=== PATIENT | male | born 1945 | race Caucasian/White ===

== ENCOUNTER 2016-09-12 12:50 | Observation (INO) | payer OTHER, MEDICAID ==
[~2016-09-12] VITALS: Ht 188 cm; Wt 95.3 kg
[~2016-09-12 12:50] MED LIST: ASPI325T4 PO; LEVO125T6 PO; LORA-205 PO; MET50T PO; NAPR220C PO; RAMI2.5C33 PO
[2016-09-12] MEDS ORDERED: SODIUM CHLORIDE 0.9% 1,000 ML IV ONE (13:48)
[2016-09-12] MEDS ORDERED: LORazepam 2MG/ML-1ML VIAL IV ONE (14:00)
[2016-09-12 14:34] LABS: Basophils # (auto) 0 uL; Basophils % (auto) 0.2 % (0.0-2.0); CONDITION Y; Eosinophils # (auto) 0.2 uL; Eosinophils % (auto) 2.6 % (0.0-7.0); Hematocrit 38.9 % (41.0-53.0); Hemoglobin 13.4 g/dL (13.5-17.5); Lymphocytes # (auto) 1.6 uL; Lymphocytes % (auto) 18.7 % (10.0-50.0); Mean Corpuscular Hemoglobin 31.5 pg (28.0-32.0); Mean Corpuscular Hgb Conc. 34.4 g/dL (32.0-36.0); Mean Corpuscular Volume 91.8 fL (80.0-100.0); Mean Platelet Volume 8.9 fL (7.4-10.4); Monocytes # (auto) 0.9 uL; Monocytes % (auto) 10.5 % (0.0-12.0); Neutrophils # (auto) 5.6 uL; Platelet Count (auto) 224 10^3/uL (140-450); Red Cell Distribution Width 13.6 % (11.6-16.0); White Blood Cell 8.3 10^3/uL (4.4-10.8)
[2016-09-12 15:22] LABS: B-Type Natriuretic Peptide 179.28 pg/mL (0-100)
[2016-09-12 15:23] LABS: Alkaline Phosphatase 72 U/L (45-117); Anion Gap 7 (5-15); Aspartate Aminotransferase 18 U/L (15-37); BUN/Creatinine Ratio 10.9; Bilirubin, Total 0.4 mg/dL (0.2-1.0); Blood Urea Nitrogen 12 mg/dL (7-18); Calcium 9.3 mg/dL (8.5-10.1); Carbon Dioxide 23 mmol/L (21-32); Chloride 108 mmol/L (98-107); GFR African American 85 mL/min; GFR Non-African American 71 mL/min; Glucose 94 mg/dL (74-106); Magnesium 2.6 mg/dL (1.6-2.6); Potassium 3.9 mmol/L (3.5-5.1); Sodium 138 mmol/L (136-145); Total Protein 7.3 g/dL (6.4-8.2)
[2016-09-12 15:26] LABS: Temperature: 24.6 C (20.0-25.0)
[2016-09-12 15:39] LABS: INR 0.97 (0.9-1.15); Partial Thromboplastin Time 27.7 sec (22.64-33.71); Prothrombin Time 10.6 sec (9.37-12.3)
[2016-09-12] MEDS ORDERED: cloNIDine HCL 0.1 MG TAB PO ONE (22:15)
[2016-09-12 22:20] VITALS: BP 167/101
== END 2016-09-12 23:09 | disposition short-term general hospital (02) | DRG 312 ==
LOC: EDBD 12:50 → ER 12:55 → OVERFLOW 13:50 → ER 23:09
PROVIDERS: ADMIT Family Medicine; ATTEND Family Medicine
DX: R55 Syncope and collapse (principal); I67.1 Cerebral aneurysm, nonruptured; D71 Functional disorders of polymorphonuclear neutrophils; I11.0 Hypertensive heart disease with heart failure; I50.9 Heart failure, unspecified; I70.0 Atherosclerosis of aorta; F41.9 Anxiety disorder, unspecified; E03.9 Hypothyroidism, unspecified; I25.5 Ischemic cardiomyopathy; I25.2 Old myocardial infarction; Z95.5 Presence of coronary angioplasty implant and graft; Z95.0 Presence of cardiac pacemaker
CPT/HCPCS: 36415; 70450; 71020; 80053; 83735; 83880; 84443; 84484; 85025; 85379; 85610; 85730; 93005; 96361; 96374; 99291; G0378; J2060

== ENCOUNTER 2017-05-29 15:38 | Emergency (ER) | payer OTHER, MEDICAID ==
[~2017-05-29] VITALS: Ht 188 cm; Wt 88.5 kg
[~2017-05-29 15:38] MED LIST changes: -LEVO125T6 PO; +LEVO125T7 PO
[2017-05-29] MEDS ORDERED: SODIUM CHLORIDE 0.9% 500 ML IV ONE (16:22)
[2017-05-29 16:27] LABS: Basophils # (auto) 0 uL; Basophils % (auto) 0.4 % (0.0-2.0); Eosinophils # (auto) 0.2 uL; Eosinophils % (auto) 3.3 % (0.0-7.0); Hematocrit 37.9 % (41.0-53.0); Hemoglobin 12.8 g/dL (13.5-17.5); Lymphocytes # (auto) 1.5 uL; Lymphocytes % (auto) 21.3 % (10.0-50.0); Mean Corpuscular Hemoglobin 31.3 pg (28.0-32.0); Mean Corpuscular Hgb Conc. 33.8 g/dL (32.0-36.0); Mean Corpuscular Volume 92.4 fL (80.0-100.0); Monocytes # (auto) 0.8 uL; Monocytes % (auto) 10.9 % (0.0-12.0); Neutrophils # (auto) 4.4 uL; Neutrophils % (auto) 64.1 % (37.0-80.0); Platelet Count (auto) 196 10^3/uL (140-450); Red Cell Distribution Width 13.5 % (11.8-14.3); White Blood Cell 6.9 10^3/uL (4.4-10.8)
[2017-05-29 16:40] LABS: Alanine Aminotransferase 24 U/L (16-61); Albumin 3.9 g/dL (3.4-5.0); Anion Gap 8 (5-15); Aspartate Aminotransferase 19 U/L (15-37); BUN/Creatinine Ratio 9.4; Blood Urea Nitrogen 12 mg/dL (7-18); Calcium 8.9 mg/dL (8.5-10.1); Carbon Dioxide 23 mmol/L (21-32); Chloride 109 mmol/L (98-107); GFR African American 72 mL/min; GFR Non-African American 60 mL/min; Glucose 88 mg/dL (74-106); Magnesium 2.2 mg/dL (1.6-2.6); Sodium 140 mmol/L (136-145)
[2017-05-29 16:45] LABS: Alkaline Phosphatase 78 U/L (45-117); Bilirubin, Total 0.4 mg/dL (0.2-1.0); Total Protein 7.1 g/dL (6.4-8.2)
[2017-05-29 18:05] VITALS: BP 118/76
== END 2017-05-29 18:16 | disposition home or self-care (01) ==
LOC: ER 15:40
DX: R53.1 Weakness (principal); I11.0 Hypertensive heart disease with heart failure; I50.9 Heart failure, unspecified; E11.9 Type 2 diabetes mellitus without complications; E78.5 Hyperlipidemia, unspecified; Z79.82 Long term (current) use of aspirin; Z86.73 Personal history of transient ischemic attack (TIA), and cerebral infarction without residual deficits; Z88.6 Allergy status to analgesic agent; Z95.0 Presence of cardiac pacemaker
CPT/HCPCS: 36415; 71046; 80053; 83735; 84484; 85025; 93005; 94761; 96360

== ENCOUNTER 2017-11-21 16:08 | Observation (INO) | payer OTHER, MEDICAID ==
[~2017-11-21] VITALS: Ht 188 cm; Wt 90.7 kg
[2017-11-21 17:35] LABS: Basophils # (auto) 0 uL; Basophils % (auto) 0.6 % (0.0-2.0); Eosinophils # (auto) 0.2 uL; Eosinophils % (auto) 3.5 % (0.0-7.0); Hematocrit 39.7 % (41.0-53.0); Hemoglobin 13.4 g/dL (13.5-17.5); Lymphocytes # (auto) 1.5 uL; Lymphocytes % (auto) 22.2 % (10.0-50.0); Mean Corpuscular Hemoglobin 31.3 pg (28.0-32.0); Mean Corpuscular Hgb Conc. 33.8 g/dL (32.0-36.0); Mean Corpuscular Volume 92.6 fL (80.0-100.0); Monocytes # (auto) 0.7 uL; Monocytes % (auto) 10.4 % (0.0-12.0); Neutrophils # (auto) 4.4 uL; Neutrophils % (auto) 63.3 % (37.0-80.0); Platelet Count (auto) 197 10^3/uL (140-450); Red Blood Cells 4.28 10^6/uL (4.5-5.90); Red Cell Distribution Width 13.3 % (11.8-14.3); White Blood Cell 6.9 10^3/uL (4.4-10.8)
[2017-11-21 17:56] LABS: Alanine Aminotransferase 20 U/L (16-61); Albumin 4.1 g/dL (3.4-5.0); Alkaline Phosphatase 72 U/L (45-117); Anion Gap 6 (5-15); Aspartate Aminotransferase 15 U/L (15-37); BUN/Creatinine Ratio 13.6; Bilirubin, Total 0.4 mg/dL (0.2-1.0); Blood Urea Nitrogen 16 mg/dL (7-18); Calcium 9.1 mg/dL (8.5-10.1); Carbon Dioxide 24 mmol/L (21-32); Chloride 108 mmol/L (98-107); GFR African American 78 mL/min; GFR Non-African American 65 mL/min; Glucose 89 mg/dL (74-106); Sodium 138 mmol/L (136-145); Total Protein 7.4 g/dL (6.4-8.2)
[2017-11-21 18:20] VITALS: BP 119/68
[2017-11-21 18:33] LABS: INR 0.98 (0.9-1.15); Partial Thromboplastin Time 28.8 sec (23.78-33.04); Prothrombin Time 10.5 sec (9.27-12.13)
[2017-11-21 21:03] LABS: Urine WBC None Seen /hpf (0 - 3)
[2017-11-21 21:25] LABS: Urine Bacteria NONE SEEN /hpf (None Seen); Urine Blood Negative /uL (Negative); Urine Mucus FEW (None Seen); Urine Specific Gravity 1.003 (1.001-1.035)
== END 2017-11-21 20:21 | disposition left against medical advice (07) | DRG 282 ==
LOC: ER 16:14 → OVERFLOW 16:15 → ER 20:21
PROVIDERS: ADMIT Family Medicine; ATTEND Family Medicine
DX: R07.89 Other chest pain (principal); I21.9 Acute myocardial infarction, unspecified; I11.0 Hypertensive heart disease with heart failure; I50.9 Heart failure, unspecified; I25.10 Atherosclerotic heart disease of native coronary artery without angina pectoris; F41.9 Anxiety disorder, unspecified; E78.5 Hyperlipidemia, unspecified; Z95.0 Presence of cardiac pacemaker
CPT/HCPCS: 36415; 71046; 80053; 81001; 82962; 83735; 83880; 84443; 84484; 85025; 85610; 85730; 93005; 99285; G0378

== ENCOUNTER 2019-02-27 14:17 | Inpatient (IN) | payer OTHER, MEDICAID ==
[~2019-02-27] VITALS: Ht 188 cm; Wt 87.5 kg
[2019-02-27 15:06] LABS: Basophils # (auto) 0.1 uL; Basophils % (auto) 0.8 % (0.0-2.0); Eosinophils # (auto) 0.1 uL; Eosinophils % (auto) 1.6 % (0.0-7.0); Hematocrit 39.5 % (41.0-53.0); Hemoglobin 13.5 g/dL (13.5-17.5); Lymphocytes # (auto) 1.6 uL; Lymphocytes % (auto) 17.4 % (10.0-50.0); Mean Corpuscular Hemoglobin 31.9 pg (28.0-32.0); Mean Corpuscular Hgb Conc. 34.2 g/dL (32.0-36.0); Mean Corpuscular Volume 93.1 fL (80.0-100.0); Monocytes # (auto) 0.8 uL; Monocytes % (auto) 8.8 % (0.0-12.0); Neutrophils # (auto) 6.5 uL; Neutrophils % (auto) 71.4 % (37.0-80.0); Platelet Count (auto) 212 10^3/uL (140-450); Red Blood Cells 4.24 10^6/uL (4.5-5.90); Red Cell Distribution Width 13.2 % (11.8-14.3); White Blood Cell 9.1 10^3/uL (4.4-10.8)
[2019-02-27 15:23] LABS: Calcium 9.1 mg/dL (8.5-10.1); Potassium 3.7 mmol/L (3.5-5.1)
[2019-02-27 15:29] LABS: Bilirubin, Total 0.4 mg/dL (0.2-1.0); Total Protein 7.4 g/dL (6.4-8.2)
[2019-02-27] MEDS ORDERED: ONDANSETRON HCL 4 MG/2 ML VIAL IV ONE (21:45)
[2019-02-27] MEDS ORDERED: MORPHINE SULF INJ 2 MG/ML SYRINGE 1ML IV ONE (21:45)
[2019-02-27] MEDS ORDERED: ASPirin 81 mg TAB PO ONE (21:45)
[2019-02-27] MEDS ORDERED: NITROGLYCERIN 0.2MG/HR TOPICAL PATCH TD ONE (22:00)
[2019-02-27] MEDS ORDERED: ONDANSETRON HCL 4 MG/2 ML VIAL IV PRN (22:30)
[2019-02-27] MEDS ORDERED: ACETAMINOPHEN 325 MG TAB PO PRN (22:30)
[2019-02-27 22:49] LABS: INR 1.06 (0.9-1.15); Partial Thromboplastin Time 27.9 sec (23.64-32.05)
[2019-02-27 23:11] LABS: Urine Bacteria NONE SEEN /hpf (None Seen); Urine Blood Negative /uL (Negative); Urine Specific Gravity 1.008 (1.001-1.035); Urine WBC 1 /hpf (0 - 3)
[2019-02-27] MEDS ORDERED: MORPHINE SULF INJ 2 MG/ML SYRINGE 1ML IV PRN (23:30)
[2019-02-27] MEDS ORDERED: METOPROLOL TARTRATE 25 MG TAB PO ONE (23:30)
[2019-02-27] MEDS ORDERED: ENOXAPARIN SOD 80 MG/0.8ML SYRINGE SC ONE (23:30)
[2019-02-27] MEDS ORDERED: NITROGLYCERIN 0.4 MG SL TAB SL PRN (23:30)
--- NOTE | 2019-02-28 00:50 | NUR ---
Telemetry admit from ER YOANDY GUERRERO admitted to Telemetry unit. Patient oriented to juan pablo SOL RN, unit, room, bed, and unit policies regarding patient care and visiting hours. Patient now on continuous telemetry monitoring, tele box # 76 and telemetry reading on arrival to unit is 100% v-paced . Patient weighed by bed scale and encouraged to call if they need something. All questions and concerns addressed, patient verbalized understanding.
[2019-02-28 00:56] VITALS: BP 143/91
[2019-02-28] MEDS: LORazepam 0.5 MG TAB PO PRN ×2 (01:37→21:10)
--- NOTE | 2019-02-28 02:22 | NUR ---
CRITICAL TROPONIN RESULT FROM ZAINAB CARD PUNCHING MACHINE OPERATOR, TROPONIN 7.980. HOSPITALIST PAGED.
--- NOTE | 2019-02-28 02:29 | NUR ---
ASKED PATIENT WHY RE REFUSED ENOXAPARIN ORDERED IN ED. PATIENT SAID,"IT IS BECAUSE OF MY ANEURYSM". HOSPITALIST PAGED.
[2019-02-28 02:45] VITALS: BP 143/91
[2019-02-28] MEDS ORDERED: ENOXAPARIN SOD 100 MG/1 ML SYRINGE SC ONE (02:45)
--- NOTE | 2019-02-28 02:45 | NUR ---
PATIENT AGREED TO TAKE LOVENOX. HOSPITALIST NOTIFIED. Addendum: 02/28/19 at 0248 by SALOMÓN PALOMINO RN HOSPITALIST NOTIFIED OF LATEST TROPONIN 7.980
--- NOTE | 2019-02-28 03:16 | NUR ---
ENOXAPARIN 90MG GIVEN SQ ORDERED, PATIENT INFORMED OF MEDICATION SIDE EFFECTS SUCH BLEEDING AND BRUISING ON INJECTION SITE, PATIENT VERBALIZED UNDERSTANDING .
[2019-02-28 06:12] VITALS: BP 113/60
[2019-02-28] MEDS: LEVOTHYROXINE SODIUM 50 MCG TAB PO SCH (06:23)
[2019-02-28 07:46] LABS: Basophils # (auto) 0 uL; Basophils % (auto) 0.2 % (0.0-2.0); Eosinophils # (auto) 0.1 uL; Eosinophils % (auto) 0.7 % (0.0-7.0); Hematocrit 35.9 % (41.0-53.0); Hemoglobin 12.7 g/dL (13.5-17.5); Lymphocytes # (auto) 1.3 uL; Lymphocytes % (auto) 13.9 % (10.0-50.0); Mean Corpuscular Hemoglobin 32.5 pg (28.0-32.0); Mean Corpuscular Hgb Conc. 35.3 g/dL (32.0-36.0); Mean Corpuscular Volume 92.1 fL (80.0-100.0); Monocytes # (auto) 0.9 uL; Monocytes % (auto) 10.2 % (0.0-12.0); Neutrophils # (auto) 6.9 uL; Nucleated Red Blood Cells % 0.1 %; Platelet Count (auto) 200 10^3/uL (140-450); Red Blood Cells 3.89 10^6/uL (4.5-5.90); Red Cell Distribution Width 13.1 % (11.8-14.3); White Blood Cell 9.3 10^3/uL (4.4-10.8)
--- NOTE | 2019-02-28 07:50 | NUR ---
Opening Shift Note Assumed care of patient, awake and alert, sitting up in bed uncomplaining. No S/S of distress/SOB or pain. Instructed on POC and to call for assist PRN, will continue to monitor for changes Q1hr and PRN. NPO status maintained for Left Heart Cath today.
[2019-02-28 07:55] LABS: Calcium 9.1 mg/dL (8.5-10.1); Potassium 4.5 mmol/L (3.5-5.1)
--- NOTE | 2019-02-28 08:15 | NUR ---
Consent Patient signed consent for left heart cath.
--- NOTE | 2019-02-28 08:25 | NUR ---
Counterperson Patient at Counterperson.
[2019-02-28 09:00] VITALS: BP 126/80
[2019-02-28 09:11] LABS: INR 1.12 (0.9-1.15); Partial Thromboplastin Time 33.3 sec (23.64-32.05)
[2019-02-28] MEDS ORDERED: ANGIOMAX 250 MG VIAL IV ONE (09:29)
[2019-02-28] MEDS ORDERED: MIDAZOLAM HCL 1MG/1ML-2 ML VIAL ONE ×2 (09:30→10:59)
[2019-02-28] MEDS ORDERED: fentaNYL CITRATE 100 MCG/2 ML VL ONE (09:30)
[2019-02-28] MEDS ORDERED: SODIUM CHL 0.9% 50 ML ONE (09:30)
[2019-02-28] MEDS ORDERED: VERAPAMIL 2.5MG/ML INJ 2ML VIAL IV ONE (09:30)
[2019-02-28] MEDS ORDERED: LIDOCAINE 2%HCL (LOCAL ANESTH.) INJ 20ML MDV ONE (09:35)
[2019-02-28] MEDS ORDERED: IOHEXOL 350 MG/ML 100ML IJ ONE ×6 (09:35→10:49)
--- NOTE | 2019-02-28 09:45 | NUR ---
Critical Troponin Troponin 6.940. Patient already in Rub[facility] [employer].
[2019-02-28] MEDS ORDERED: HEPARIN SODIUM (PORCINE) 5000 UNITS/ML 1ML VIAL ONE (09:56)
[2019-02-28] MEDS ORDERED: ASPirin 81 mg TAB PO SCH (10:00)
[2019-02-28] MEDS ORDERED: ENOXAPARIN SOD 40 MG/0.4 ML SYRINGE SC SCH (10:00)
[2019-02-28] MEDS ORDERED: ENOXAPARIN SOD 80 MG/0.8ML SYRINGE SC SCH (10:00)
[2019-02-28] MEDS ORDERED: ASPirin 325 MG TAB ONE (10:54)
[2019-02-28] MEDS ORDERED: CLOPIDOGREL 300 MG TAB ONE (10:54)
[2019-02-28] MEDS ORDERED: SODIUM CHLORIDE 0.9% 1,000 ML IV ONE (12:00)
--- NOTE | 2019-02-28 12:30 | NUR ---
On Unit Patient brought back to unit from greens laborer. Patient awake but drowsy, alert and oriented. No complaints at this time. Call light placed within reach and patient encouraged to call if he needed something. Bed alarm on for safety.
--- NOTE | 2019-02-28 12:30 | NUR ---
Vasc Band 2 units of air removed from vasc band.
--- NOTE | 2019-02-28 12:45 | NUR ---
Vasc Band Another 2 units of air removed from vasc band to right hand. no bleeding noted, and patient has sensation to fingers.
[2019-02-28] MEDS: FAMOTIDINE 20 MG TAB PO SCH ×2 (13:14→21:10)
[2019-02-28] MEDS: METOPROLOL TARTRATE 25 MG TAB PO SCH ×2 (13:18→21:10)
[2019-02-28] MEDS: RAMIPRIL 2.5 MG CAP PO SCH (13:18)
[2019-02-28] MEDS ORDERED: OPTISON 3ml Vial for INJ IV ONE (14:30)
--- NOTE | 2019-02-28 14:44 | NUR ---
COVERING FOR RAFA KING GIVE IV ORDERED FOR ECHOCARDIOGRAM. Addendum: 02/28/19 at 1449 by Paula Armando RN OPTISON 2ML GIVEN IV.
--- NOTE | 2019-02-28 15:00 | NUR ---
Vasc Band All air from vasc band removed, however bleeding noted, so 4cc of air reintroduced to vasc band. Will continue to monitor patient for sensation and bleeding.
--- NOTE | 2019-02-28 16:25 | NUR ---
IV Dislodged IV noted to be dislodged as patient ambulated in room without IV pole. Catheter fully intact. Pressure dressing applied to site. IV insertion IV access obtained, via clean sterile technique by inserting 20 gauge catheter at left wrist after 1 attempt. IV secured properly. No trauma to site. Patient tolerated well.
--- NOTE | 2019-02-28 16:30 | NUR ---
Vasc Band 1cc air removed from vasc band . No bleeding noted.
--- NOTE | 2019-02-28 16:45 | NUR ---
Vasc Band Final 1cc of air removed from vasc band . No bleeding noted. Will continue to monitor.
[2019-02-28 16:58] VITALS: BP 107/76
--- NOTE | 2019-02-28 17:00 | NUR ---
Vasc Band Band removed from patient's right wrist. No bleeding noted. Dressed with gauzed and covered with Tegaderm.
[2019-02-28] MEDS: SODIUM CHLORIDE 0.9% 1,000 ML IV SCH (17:01)
--- NOTE | 2019-02-28 17:15 | NUR ---
Vasc Band 1cc air removed from vasc band . No bleeding noted. Addendum: 02/28/19 at 1805 by MALINI BEARD RN Time is 1615
--- NOTE | 2019-02-28 17:30 | NUR ---
Vasc Band 1cc air removed from vasc band . No bleeding noted. Addendum: 02/28/19 at 1804 by MALINI BEARD RN Time is 1600.
--- NOTE | 2019-02-28 17:40 | NUR ---
Physical Therapy Patient ambulated on unit with Physical Therapist.
[2019-02-28 21:51] VITALS: BP 115/76
[2019-02-28] MEDS ORDERED: ATORVASTATIN 20 MG TAB PO SCH (22:00)
[2019-03-01] MEDS ORDERED: SODIUM CHLORIDE 0.9% 1,000 ML IV SCH ×2 (00:01)
[2019-03-01 04:54] VITALS: BP 107/64
[2019-03-01] MEDS: SODIUM CHLORIDE 0.9% 1,000 ML IV SCH (05:18)
[2019-03-01] MEDS: LEVOTHYROXINE SODIUM 50 MCG TAB PO SCH (05:37)
[2019-03-01 06:32] LABS: Basophils # (auto) 0 uL; Basophils % (auto) 0.3 % (0.0-2.0); Eosinophils # (auto) 0 uL; Eosinophils % (auto) 0.5 % (0.0-7.0); Hematocrit 34.4 % (41.0-53.0); Hemoglobin 12.1 g/dL (13.5-17.5); Lymphocytes # (auto) 1.2 uL; Lymphocytes % (auto) 15.6 % (10.0-50.0); Mean Corpuscular Hemoglobin 32.6 pg (28.0-32.0); Mean Corpuscular Hgb Conc. 35.2 g/dL (32.0-36.0); Mean Corpuscular Volume 92.5 fL (80.0-100.0); Monocytes # (auto) 0.7 uL; Monocytes % (auto) 9.6 % (0.0-12.0); Neutrophils # (auto) 5.7 uL; Nucleated Red Blood Cells % 0.1 %; Platelet Count (auto) 167 10^3/uL (140-450); Red Blood Cells 3.72 10^6/uL (4.5-5.90); Red Cell Distribution Width 13.2 % (11.8-14.3); White Blood Cell 7.7 10^3/uL (4.4-10.8)
[2019-03-01 06:40] LABS: Potassium 3.7 mmol/L (3.5-5.1)
--- NOTE | 2019-03-01 06:41 | NUR ---
End of Shift Summary: Patient had no episodes of chest pain. Ambulates without difficulty. Has episodes of forgetfulness.
[2019-03-01 07:08] LABS: BUN/Creatinine Ratio 9.9; Magnesium 2.1 mg/dL (1.6-2.6)
--- NOTE | 2019-03-01 07:30 | NUR ---
Morning note Patient resting in bed with even and unlabored respirations, no distress noted. Instructed patient on POC, fall precautions and to call for assistance as needed. Patient verbalized understanding. Fall precautions in place with bed in lowest locked position with x2 side rails up and call light within reach. Will continue to monitor q1hr & PRN.
--- NOTE | 2019-03-01 07:52 | NUR ---
RE: Critical troponin Message left with Dr. Sifuentes notifying MD of the critical troponin. Patient denies CP. Will continue to monitor q1hr & PRN.
--- NOTE | 2019-03-01 08:30 | NUR ---
Patient ambulating with steady gait respirations even and unlabored, no distress noted.
[2019-03-01 09:00] VITALS: BP 105/71
[2019-03-01] MEDS: FAMOTIDINE 20 MG TAB PO SCH (09:42)
[2019-03-01] MEDS: METOPROLOL TARTRATE 25 MG TAB PO SCH (09:42)
[2019-03-01] MEDS: RAMIPRIL 2.5 MG CAP PO SCH (09:43)
[2019-03-01] MEDS ORDERED: ASPirin 81 mg TAB PO SCH (10:00)
[2019-03-01] MEDS ORDERED: CLOPIDOGREL BISULFATE 75 MG TAB PO SCH (10:00)
--- NOTE | 2019-03-01 10:20 | NUR ---
RE: critical troponin Received critical troponin. Level is trending down. aware. Verbally notified Kalen Haq, N.P.. Severino verbalized understanding. Patient denies CP and/or SOB.
--- NOTE | 2019-03-01 10:25 | NUR ---
Patient okay for discharge per Gabriel Delgadillo.P..
--- NOTE | 2019-03-01 10:48 | NUR ---
was at bedside - Dr. Shaikh TOLENTINO discussed with the patient. Patient verbalized understanding. This RN was at bedside.
[2019-03-01] MEDS ORDERED: PANT40TA2 PO (12:11)
[2019-03-01] MEDS ORDERED: ASPI81CH43 PO (12:11)
[2019-03-01] MEDS ORDERED: CLOP75TA28 PO (12:11)
[2019-03-01] MEDS ORDERED: ATOR20TA50 PO (12:11)
[2019-03-01] MEDS ORDERED: SPIR25TA88 PO (12:14)
--- NOTE | 2019-03-01 13:20 | NUR ---
Discharge Discharge education and paperwork given to the patient per MD order. Patient verbalized understanding. IV removed with clean technique, catheter intact. Dressing and pressure applied. Patient tolerated well, no bleeding and/or trauma to site. Telemonitor removed and returned. Instructed patient on bleeding precautions and educated patient on new prescription. Patient verbalized understanding. Patient reports having all personal belongings. Patient being transported home by his girlfriend, who is present at bedside during discharge. Dressing to the right wrist is clean, dry and intact with no bleeding and/or hematoma noted. Respirations even and unlabored, no distress noted. Patient refused wheelchair. Patient ambulated with a steady gait to private vehicle.
--- NOTE | 2019-03-01 15:11 | NUR ---
Assessment and SS consult Pt is a 73 yr old alert and oriented male. SS consult given for d/c planning. Pt lives alone, in senior apartments. Pt's neighbor, Tiffanie, is his emergency contact at [phone]. Prior to admit and currently, pt is ambulatory and independent with ADL's. Pt has a ride on scooter for long distances. Pt stated that he was admitted with chest pains and that he had stints put in. Pt's Primary is Dr Pichardo. Pt receives income. No AD on file. Pt's neighbor was bedside and planned to transport home upon d/c. No d/c needs assessed.
== END 2019-03-01 13:15 | disposition home or self-care (01) | DRG 246 ==
LOC: EDBD 14:17 → ER 14:25 → TELE 14:26 → TELE-WESTW 02-28 00:38
PROVIDERS: ADMIT Nurse Practitioner; ATTEND Internal Medicine
PROC: 027237Z Dilation of Coronary Artery, Three Arteries with Four or More Drug-eluting Intraluminal Devices, Percutaneous Approach (ICD-10-PCS; principal; 2019-02-28)
PROC: 02C23ZZ Extirpation of Matter from Coronary Artery, Three Arteries, Percutaneous Approach (ICD-10-PCS; 2019-02-28)
PROC: 4A023N7 Measurement of Cardiac Sampling and Pressure, Left Heart, Percutaneous Approach (ICD-10-PCS; 2019-02-28)
PROC: B2111ZZ Fluoroscopy of Multiple Coronary Arteries using Low Osmolar Contrast (ICD-10-PCS; 2019-02-28)
PROC: B2151ZZ Fluoroscopy of Left Heart using Low Osmolar Contrast (ICD-10-PCS; 2019-02-28)
DX: T82.858A Stenosis of other vascular prosthetic devices, implants and grafts, initial encounter (principal); I21.4 Non-ST elevation (NSTEMI) myocardial infarction; I50.43 Acute on chronic combined systolic (congestive) and diastolic (congestive) heart failure; E78.5 Hyperlipidemia, unspecified; E03.9 Hypothyroidism, unspecified; I11.0 Hypertensive heart disease with heart failure; F41.9 Anxiety disorder, unspecified; Y84.0 Cardiac catheterization as the cause of abnormal reaction of the patient, or of later complication, without mention of misadventure at the time of the procedure; I25.10 Atherosclerotic heart disease of native coronary artery without angina pectoris; Z79.02 Long term (current) use of antithrombotics/antiplatelets; Z88.8 Allergy status to other drugs, medicaments and biological substances; Z90.49 Acquired absence of other specified parts of digestive tract; Z83.3 Family history of diabetes mellitus; Z95.0 Presence of cardiac pacemaker; Z95.5 Presence of coronary angioplasty implant and graft; Z82.49 Family history of ischemic heart disease and other diseases of the circulatory system; Y92.89 Other specified places as the place of occurrence of the external cause; Z79.899 Other long term (current) drug therapy
CPT/HCPCS: 36415; 71045; 80048; 80053; 80061; 81001; 83735; 83880; 84443; 84484; 85025; 85610; 85730; 93005; 93306; 96361; 96372; 96374; 97116; 97530; C1887; G0378; J2250; J2405; Q9956

== ENCOUNTER 2020-05-11 11:21 | Inpatient (IN) | payer OTHER, MEDICAID ==
[~2020-05-11] VITALS: Ht 188 cm; Wt 85.6 kg
[2020-05-11] VITALS (11 sets, daily range): BP systolic 125–133; BP diastolic 74–80
[~2020-05-11 11:21] MED LIST changes: -ASPI325T4 PO; +ASPI81CH43 PO; +ATOR20TA50 PO; +CLOP75TA28 PO; +PANT40TA2 PO; +SPIR25TA PO
[2020-05-11] MEDS ORDERED: AMIODARONE HCL 150 MG in D5W 5% 100 ML IV ONE (11:45)
[2020-05-11] MEDS ORDERED: AMIODARONE HCL (50 MG/ ML) 3 ML VIAL IV ONE (11:46)
[2020-05-11] MEDS ORDERED: AMIODARONE 450mg/250ml AE 250 ML IV ONE (11:48)
[2020-05-11 11:56] LABS: Basophils # (auto) 0 10 ^3/uL (0-0.2); Basophils % (auto) 0.2 % (0.0-2.0); Eosinophils # (auto) 0.1 10 ^3/uL (0-0.8); Eosinophils % (auto) 1.6 % (0.0-7.0); Hematocrit 38.7 % (41.0-53.0); Hemoglobin 13.6 g/dL (13.5-17.5); Lymphocytes # (auto) 1.2 10 ^3/uL (0.4-5.4); Mean Corpuscular Hemoglobin 32.6 pg (28.0-32.0); Mean Corpuscular Hgb Conc. 35.1 g/dL (32.0-36.0); Mean Corpuscular Volume 93.1 fL (80.0-100.0); Monocytes # (auto) 0.7 10 ^3/uL (0-1.3); Monocytes % (auto) 8.4 % (0.0-12.0); Neutrophils # (auto) 6.5 10 ^3/uL (1.6-8.6); Neutrophils % (auto) 75.8 % (37.0-80.0); Nucleated Red Blood Cells % 0.1 %; Red Blood Cells 4.16 10^6/uL (4.5-5.90); Red Cell Distribution Width 13.6 % (11.8-14.3); White Blood Cell 8.5 10^3/uL (4.4-10.8)
[2020-05-11] MEDS ORDERED: AMIODARONE 450mg/250ml AE 250 ML IV SCH (12:00)
[2020-05-11 12:19] LABS: Albumin 3.9 g/dL (3.4-5.0); Anion Gap 7 (5-15); Blood Urea Nitrogen 12 mg/dL (7-18); Calcium 9.4 mg/dL (8.5-10.1); Carbon Dioxide 26 mmol/L (21-32); Chloride 107 mmol/L (98-107); Glucose 97 mg/dL (74-106); Magnesium 2.5 mg/dL (1.6-2.6); Potassium 4.1 mmol/L (3.5-5.1); Sodium 140 mmol/L (136-145)
[2020-05-11 12:23] LABS: Alanine Aminotransferase 26 U/L (16-61); Alkaline Phosphatase 93 U/L (45-117); Aspartate Aminotransferase 22 U/L (15-37); BUN/Creatinine Ratio 11.7; Bilirubin, Total 0.5 mg/dL (0.2-1.0); GFR African American 91 mL/min; GFR Non-African American 75 mL/min; Total Protein 7.5 g/dL (6.4-8.2)
[2020-05-11] MEDS ORDERED: NITROGLYCERIN 0.4 MG SL TAB SL PRN (13:00)
[2020-05-11] MEDS ORDERED: HYDROcodone-ACET 5/325MG TAB PO PRN (13:00)
[2020-05-11] MEDS ORDERED: ONDANSETRON HCL 4 MG/2 ML VIAL IV PRN (13:00)
[2020-05-11] MEDS ORDERED: MORPHINE SULFATE INJECTION 2 MG/ML SYRG IV PRN ×2 (13:00)
[2020-05-11] MEDS ORDERED: ALUM & MAG HYDROX-SIMETH LIQ(MAALOX) 30 ML PO PRN (13:00)
[2020-05-11] MEDS ORDERED: ACETAMINOPHEN 325 MG TAB PO PRN (13:00)
[2020-05-11 13:38] LABS: Cholesterol 143 mg/dL (< 200); HDL Cholesterol 65 mg/dL (40-59); LDL Cholesterol 66 mg/dL (< 100); Triglycerides 76 mg/dL (< 150)
[2020-05-11] MEDS: D5W/SOD CHL 0.45% 1,000 ML IV SCH (15:00)
[2020-05-11] MEDS ORDERED: LORazepam 0.5 MG TAB PO PRN (15:30)
[2020-05-11 17:18] LABS: INR 1.02 (0.9-1.15)
[2020-05-11] MEDS: AMIODARONE 450mg/250ml AE 250 ML IV SCH (19:30)
[2020-05-11] MEDS: ENOXAPARIN SOD 60 MG/0.6 ML SYRINGE SC SCH (20:51)
[2020-05-11] MEDS ORDERED: ATORVASTATIN 20 MG TAB PO SCH ×2 (22:00)
[2020-05-12] VITALS (17 sets, daily range): BP systolic 103–134; BP diastolic 67–86
[2020-05-12] MEDS: D5W/SOD CHL 0.45% 1,000 ML IV SCH (05:51)
[2020-05-12] MEDS ORDERED: LEVOTHYROXINE SODIUM 50 MCG TAB PO SCH (07:00)
[2020-05-12] MEDS ORDERED: SPIRONOLACTONE 25 MG TAB PO SCH (10:00)
[2020-05-12] MEDS ORDERED: RAMIPRIL 2.5 MG CAP PO SCH (10:00)
[2020-05-12] MEDS ORDERED: METOPROLOL SUCCINATE XL 50 MG TAB PO SCH (10:00)
[2020-05-12] MEDS ORDERED: PANTOPRAZOLE 40 MG TAB PO SCH (10:00)
[2020-05-12] MEDS ORDERED: CLOPIDOGREL BISULFATE 75 MG TAB PO SCH ×2 (10:00)
[2020-05-12] MEDS ORDERED: ASPirin 81 mg TAB PO SCH ×2 (10:00)
[2020-05-12] MEDS: ENOXAPARIN SOD 60 MG/0.6 ML SYRINGE SC SCH ×2 (10:00→10:10)
[2020-05-12] MEDS: AMIODARONE 450mg/250ml AE 250 ML IV SCH (10:09)
== END 2020-05-12 16:00 | disposition left against medical advice (07) | DRG 309 ==
LOC: EDBD 11:21 → ER 11:21 → OVERFLOW 11:22 → DOU IN ICU 14:01
PROVIDERS: ADMIT Hospitalist; ATTEND Hospitalist
DX: I47.2 Ventricular tachycardia (principal); I25.110 Atherosclerotic heart disease of native coronary artery with unstable angina pectoris; Z20.822 Contact with and (suspected) exposure to COVID-19; E78.00 Pure hypercholesterolemia, unspecified; E78.5 Hyperlipidemia, unspecified; I11.0 Hypertensive heart disease with heart failure; Z53.29 Procedure and treatment not carried out because of patient's decision for other reasons; I25.5 Ischemic cardiomyopathy; I50.9 Heart failure, unspecified; I25.2 Old myocardial infarction; Z82.49 Family history of ischemic heart disease and other diseases of the circulatory system; Z95.5 Presence of coronary angioplasty implant and graft; Z95.810 Presence of automatic (implantable) cardiac defibrillator; Z88.8 Allergy status to other drugs, medicaments and biological substances
CPT/HCPCS: 36415; 71045; 80053; 80061; 82962; 83036; 83735; 83880; 84484; 85025; 85379; 85610; 85730; 86850; 86900; 86901; 87081; 87426; 93005; 93306; 99291; G0378; J7060

== ENCOUNTER 2021-07-29 10:07 | Inpatient (IN) | payer OTHER, MEDICAID ==
[~2021-07-29] VITALS: Ht 188 cm; Wt 84.3 kg
[2021-07-29] MEDS ORDERED: ASPirin 81 mg TAB PO ONE (11:15)
[2021-07-29 13:53] LABS: Urine Bacteria NONE SEEN /hpf (None Seen); Urine Blood Negative /uL (Negative); Urine Specific Gravity 1.013 (1.001-1.035); Urine WBC <1 /hpf (0 - 3)
[2021-07-29] MEDS ORDERED: MORPHINE SULFATE INJ 2 MG/ml SYRG IV PRN ×2 (15:00→16:15)
[2021-07-29] MEDS ORDERED: NITROGLYCERIN 0.4 MG SL TAB SL PRN (15:00)
[2021-07-29 15:20] LABS: Basophils # (auto) 0.1 10 ^3/uL (0-0.2); Eosinophils # (auto) 0.1 10 ^3/uL (0-0.8); Eosinophils % (auto) 1.6 % (0.0-7.0); Hemoglobin 12.8 g/dL (13.5-17.5); Lymphocytes # (auto) 1.3 10 ^3/uL (0.4-5.4); Lymphocytes % (auto) 20.1 % (10.0-50.0); Mean Corpuscular Hemoglobin 32.4 pg (28.0-32.0); Mean Corpuscular Hgb Conc. 35.6 g/dL (32.0-36.0); Monocytes # (auto) 0.8 10 ^3/uL (0-1.3); Monocytes % (auto) 12.5 % (0.0-12.0); Neutrophils # (auto) 4.3 10 ^3/uL (1.6-8.6); Neutrophils % (auto) 64.8 % (37.0-80.0); Nucleated Red Blood Cells % 0.2 %; Red Blood Cells 3.95 10^6/uL (4.5-5.90); Red Cell Distribution Width 13.1 % (11.8-14.3); White Blood Cell 6.6 10^3/uL (4.4-10.8)
[2021-07-29 15:26] LABS: INR 1.12 (0.9-1.15); Partial Thromboplastin Time 29.4 sec (23.6-33.0)
[2021-07-29 15:30] LABS: Albumin 3.5 g/dL (3.4-5.0); Calcium 9.2 mg/dL (8.5-10.1); Potassium 4.2 mmol/L (3.5-5.1)
[2021-07-29 15:34] LABS: BUN/Creatinine Ratio 12.7; Bilirubin, Total 0.6 mg/dL (0.2-1.0); Total Protein 6.9 g/dL (6.4-8.2)
[2021-07-29] MEDS ORDERED: PANTOPRAZOLE 40 MG/10 ML VIAL INJ IV ONE (16:15)
[2021-07-29] MEDS ORDERED: HYDROcodone-ACET 5/325MG TAB PO PRN (16:15)
[2021-07-29] MEDS ORDERED: ATORVASTATIN 20 MG TAB PO ONE (16:15)
[2021-07-29] MEDS ORDERED: ONDANSETRON HCL 4 MG/2 ML VIAL IV PRN (16:15)
[2021-07-29] MEDS ORDERED: METOPROLOL SUCCINATE XL 50 MG TAB PO ONE (16:15)
[2021-07-29] MEDS ORDERED: ACETAMINOPHEN 325 MG TAB PO PRN (16:15)
[2021-07-29] MEDS ORDERED: DOCUSATE SOD 100 MG CAP PO PRN (16:15)
[2021-07-29] MEDS ORDERED: hydrALAZINE HCL 20 MG/ML VL IV PRN (16:15)
[2021-07-29 17:16] LABS: Magnesium 2.2 mg/dL (1.6-2.6); Phosphorus 3.4 mg/dL (2.5-4.90)
[2021-07-29] MEDS: LORazepam 0.5 MG TAB PO PRN (20:42)
[2021-07-29] MEDS: FUROSEMIDE 20 MG/2 ML VIAL IV SCH (21:31)
[2021-07-29] MEDS: ISOSORBIDE MONONITRATE 20 MG TAB PO SCH (21:31)
[2021-07-29] MEDS: POTASSIUM CHL 20 Meq TABLET PO SCH (21:31)
[2021-07-29] MEDS: ATORVASTATIN 20 MG TAB PO SCH (21:32)
[2021-07-29 22:00] VITALS: BP 150/85
[2021-07-30 05:00] VITALS: BP_SYST 127; BP_SYST 133; BP_DIAS 72; BP_DIAS 92
[2021-07-30] MEDS: LORazepam 0.5 MG TAB PO PRN ×2 (05:55→17:02)
[2021-07-30] MEDS: FUROSEMIDE 20 MG/2 ML VIAL IV SCH (06:47)
[2021-07-30 07:08] LABS: Basophils # (auto) 0 10 ^3/uL (0-0.2); Basophils % (auto) 0.2 % (0.0-2.0); Eosinophils # (auto) 0.2 10 ^3/uL (0-0.8); Eosinophils % (auto) 2.7 % (0.0-7.0); Hematocrit 40.2 % (41.0-53.0); Hemoglobin 13.7 g/dL (13.5-17.5); Lymphocytes # (auto) 1.4 10 ^3/uL (0.4-5.4); Lymphocytes % (auto) 21.6 % (10.0-50.0); Mean Corpuscular Hemoglobin 31.4 pg (28.0-32.0); Mean Corpuscular Hgb Conc. 34.1 g/dL (32.0-36.0); Mean Corpuscular Volume 92.2 fL (80.0-100.0); Monocytes # (auto) 0.7 10 ^3/uL (0-1.3); Monocytes % (auto) 10.9 % (0.0-12.0); Neutrophils # (auto) 4.2 10 ^3/uL (1.6-8.6); Neutrophils % (auto) 64.6 % (37.0-80.0); Red Blood Cells 4.36 10^6/uL (4.5-5.90); Red Cell Distribution Width 12.9 % (11.8-14.3); White Blood Cell 6.4 10^3/uL (4.4-10.8)
[2021-07-30 07:26] LABS: Albumin 3.8 g/dL (3.4-5.0); BUN/Creatinine Ratio 12.4; Bilirubin, Total 0.8 mg/dL (0.2-1.0); CRP High Sensitivity 0.43 mg/dL (< 0.3); Calcium 9.7 mg/dL (8.5-10.1); Phosphorus 3.4 mg/dL (2.5-4.90); Total Protein 7.2 g/dL (6.4-8.2); Uric Acid 5.9 mg/dL (3.5-7.2)
[2021-07-30 07:28] LABS: INR 1.07 (0.9-1.15); Partial Thromboplastin Time 29.4 sec (23.6-33.0); Thyroid Stimulating Hormone 0.01 uIU/mL (0.358-3.74)
[2021-07-30 08:20] VITALS: BP 155/121
[2021-07-30 09:13] VITALS: BP 144/84
[2021-07-30] MEDS: ASPirin 81 mg TAB PO SCH (09:32)
[2021-07-30] MEDS: RAMIPRIL 2.5 MG CAP PO SCH (09:32)
[2021-07-30] MEDS: POTASSIUM CHL 20 Meq TABLET PO SCH (09:33)
[2021-07-30] MEDS: CLOPIDOGREL BISULFATE 75 MG TAB PO SCH (09:33)
[2021-07-30] MEDS: METOPROLOL SUCCINATE XL 50 MG TAB PO SCH (09:35)
[2021-07-30] MEDS: ISOSORBIDE MONONITRATE 20 MG TAB PO SCH ×2 (09:36→21:55)
[2021-07-30] MEDS ORDERED: PANTOPRAZOLE 40 MG/10 ML VIAL INJ IV SCH (10:00)
[2021-07-30] MEDS ORDERED: ENOXAPARIN SOD 40 MG/0.4 ML SYRINGE SC SCH (10:00)
[2021-07-30 12:44] VITALS: BP 112/77
[2021-07-30] MEDS: ATORVASTATIN 20 MG TAB PO SCH (21:55)
[2021-07-30 22:00] VITALS: BP 122/75
[2021-07-31 05:00] VITALS: BP 145/88
[2021-07-31] MEDS ORDERED: FUROSEMIDE 40 MG/4 ML VIAL ONE (06:00)
[2021-07-31] MEDS ORDERED: FUROSEMIDE 20 MG/2 ML VIAL IV SCH (07:00)
[2021-07-31 07:32] LABS: Calcium 9.8 mg/dL (8.5-10.1); Potassium 4.4 mmol/L (3.5-5.1)
[2021-07-31 07:36] LABS: BUN/Creatinine Ratio 13.5
[2021-07-31 09:00] VITALS: BP 144/83
[2021-07-31] MEDS: METOPROLOL SUCCINATE XL 50 MG TAB PO SCH (09:44)
[2021-07-31] MEDS: ISOSORBIDE MONONITRATE 20 MG TAB PO SCH (09:44)
[2021-07-31] MEDS: ASPirin 81 mg TAB PO SCH (09:45)
[2021-07-31] MEDS: CLOPIDOGREL BISULFATE 75 MG TAB PO SCH (09:45)
[2021-07-31] MEDS: RAMIPRIL 2.5 MG CAP PO SCH (09:46)
[2021-07-31] MEDS ORDERED: POTASSIUM CHL 20 Meq TABLET PO SCH (10:00)
[2021-07-31] MEDS ORDERED: CLOP75TA70 PO (11:59)
[2021-07-31 12:25] VITALS: BP 127/79
[2021-07-31 13:17] VITALS: BP 127/79
== END 2021-07-31 15:25 | disposition home or self-care (01) | DRG 291 ==
LOC: ER 10:07 → TELE 14:48 → TELE-WESTW 18:09
PROVIDERS: ADMIT Hospitalist; ATTEND Internal Medicine
DX: I11.0 Hypertensive heart disease with heart failure (principal); I50.23 Acute on chronic systolic (congestive) heart failure; I25.119 Atherosclerotic heart disease of native coronary artery with unspecified angina pectoris; I25.5 Ischemic cardiomyopathy; K21.9 Gastro-esophageal reflux disease without esophagitis; J44.9 Chronic obstructive pulmonary disease, unspecified; E03.9 Hypothyroidism, unspecified; E78.5 Hyperlipidemia, unspecified; F41.9 Anxiety disorder, unspecified; Z79.82 Long term (current) use of aspirin; Z79.02 Long term (current) use of antithrombotics/antiplatelets; Z95.0 Presence of cardiac pacemaker; Z79.899 Other long term (current) drug therapy; Z20.822 Contact with and (suspected) exposure to COVID-19
CPT/HCPCS: 36415; 36600; 71045; 80048; 80053; 80061; 81001; 82550; 82728; 82805; 82962; 83036; 83615; 83690; 83735; 83880; 84100; 84439; 84443; 84484; 84550; 85025; 85379; 85610; 85652; 85730; 86141; 87040; 87086; 93005; 93306; 96374; 99291; C9113; G0378

== ENCOUNTER 2023-02-25 10:46 | Inpatient (IN) | payer OTHER, MEDICAID ==
[~2023-02-25] VITALS: Ht 188 cm; Wt 86.5 kg
[~2023-02-25 10:46] MED LIST changes: +CLOP75TA70 PO
[2023-02-25 11:19] VITALS: PULSE 75; RESP 16; O2SAT 91
[2023-02-25 11:24] LABS: Basophils # (auto) 0 10 ^3/uL (0-0.2); Basophils % (auto) 0.2 % (0.0-2.0); Eosinophils # (auto) 0.1 10 ^3/uL (0-0.8); Hematocrit 36.7 % (41.0-53.0); Hemoglobin 12.1 g/dL (13.5-17.5); Lymphocytes # (auto) 1.1 10 ^3/uL (0.4-5.4); Lymphocytes % (auto) 13.3 % (10.0-50.0); Mean Corpuscular Hemoglobin 31.5 pg (28.0-32.0); Mean Corpuscular Hgb Conc. 33.1 g/dL (32.0-36.0); Mean Corpuscular Volume 95.3 fL (80.0-100.0); Monocytes # (auto) 0.8 10 ^3/uL (0-1.3); Monocytes % (auto) 9.8 % (0.0-12.0); Neutrophils # (auto) 6.4 10 ^3/uL (1.6-8.6); Neutrophils % (auto) 75.7 % (37.0-80.0); Red Blood Cells 3.85 10^6/uL (4.5-5.90); Red Cell Distribution Width 13.9 % (11.8-14.3); White Blood Cell 8.5 10^3/uL (4.4-10.8)
[2023-02-25 11:41] LABS: INR 1.08 (0.9-1.15); Partial Thromboplastin Time 31.5 SEC (24.5-34.5); Prothrombin Time 11.3 sec (9.3-11.8)
[2023-02-25 11:45] LABS: Alanine Aminotransferase 32 U/L (7-40); Alkaline Phosphatase 82 U/L (46-116); Anion Gap 5 (5-15); Aspartate Aminotransferase 24 U/L (13-40); BUN/Creatinine Ratio 13.5 (10.0-20.0); Bilirubin, Total 0.9 mg/dL (0.2-1.0); Blood Urea Nitrogen 13 mg/dL (9-23); Calcium 8.8 mg/dL (8.7-10.4); Carbon Dioxide 24 mmol/L (20-30); Chloride 109 mmol/L (98-107); Glucose 90 mg/dL (74-106); Magnesium 2.1 mg/dL (1.6-2.6); Sodium 138 mmol/L (136-145)
[2023-02-25 11:46] LABS: Total Protein 6.3 g/dL (5.7-8.2)
[2023-02-25] MEDS ORDERED: FUROSEMIDE 40 MG/4 ML VIAL IV ONE (12:30)
[2023-02-25] MEDS ORDERED: HYDROcodone-ACET 5/325MG TAB PO PRN (13:15)
[2023-02-25] MEDS ORDERED: ACETAMINOPHEN 325 MG TAB PO PRN (13:15)
[2023-02-25] MEDS ORDERED: DOCUSATE SOD 100 MG CAP PO PRN (13:15)
[2023-02-25] MEDS ORDERED: ONDANSETRON HCL 4 MG/2 ML VIAL IV PRN (13:15)
[2023-02-25] MEDS ORDERED: NITROGLYCERIN 0.4 MG SL TAB SL PRN (13:15)
[2023-02-25] MEDS ORDERED: MORPHINE SULFATE INJ 2 MG/ml SYRG IV PRN (13:15)
[2023-02-25 13:52] LABS: Urine Bacteria NONE SEEN /hpf (None Seen); Urine Blood Negative /uL (Negative); Urine Clarity Clear (Clear); Urine Color Yellow (Yellow); Urine Protein, UAD Negative (Negative); Urine Urobilinogen Normal (Negative); Urine WBC <1 /hpf (0 - 3)
[2023-02-25] MEDS ORDERED: ATOR40TA52 PO (14:11)
[2023-02-25] MEDS ORDERED: METO200T42 PO (14:11)
[2023-02-25] MEDS ORDERED: RAMI5CAP40 PO (14:11)
[2023-02-25] MEDS ORDERED: PANT40T PO (14:11)
[2023-02-25] MEDS ORDERED: AMLO1TAB22 PO (14:11)
[2023-02-25] MEDS ORDERED: LEVO150T10 PO (14:11)
[2023-02-25] MEDS ORDERED: LORA-1123 PO (14:11)
[2023-02-25] MEDS: FUROSEMIDE 20 MG/2 ML VIAL IV SCH (18:00)
[2023-02-25 19:30] VITALS: PULSE 79; RESP 15; O2SAT 94
[2023-02-25] MEDS ORDERED: ATORVASTATIN 20 MG TAB PO SCH (22:00)
[2023-02-25] MEDS: APIXABAN 2.5 MG TAB PO SCH (22:17)
[2023-02-25] MEDS: LORazepam 0.5 MG TAB PO SCH (22:17)
[2023-02-25] MEDS: SACUBITRIL-VALSARTAN 24mg/26mg TAB PO SCH (23:11)
[2023-02-26] VITALS (7 sets, daily range): BP systolic 102–124; BP diastolic 53–73; PULSE 61–95; RESP 16–20; TEMP 97.4–98.1; O2SAT 91–99
[2023-02-26] MEDS ORDERED: PNEUMOCOCCAL VACC POLYS 25 MCG/0.5 ML VIAL IM ONE (01:45)
[2023-02-26] MEDS: FUROSEMIDE 20 MG/2 ML VIAL IV SCH (06:00)
[2023-02-26 06:39] LABS: Basophils # (auto) 0 10 ^3/uL (0-0.2); Basophils % (auto) 0.5 % (0.0-2.0); Eosinophils # (auto) 0.2 10 ^3/uL (0-0.8); Eosinophils % (auto) 1.9 % (0.0-7.0); Hematocrit 38.5 % (41.0-53.0); Hemoglobin 13.1 g/dL (13.5-17.5); Lymphocytes # (auto) 2.1 10 ^3/uL (0.4-5.4); Lymphocytes % (auto) 20.2 % (10.0-50.0); Mean Corpuscular Hemoglobin 31.9 pg (28.0-32.0); Mean Corpuscular Volume 93.9 fL (80.0-100.0); Monocytes # (auto) 1.1 10 ^3/uL (0-1.3); Monocytes % (auto) 10.9 % (0.0-12.0); Neutrophils # (auto) 6.8 10 ^3/uL (1.6-8.6); Neutrophils % (auto) 66.5 % (37.0-80.0); Nucleated Red Blood Cells % 0.1 %; Red Cell Distribution Width 13.8 % (11.8-14.3); White Blood Cell 10.2 10^3/uL (4.4-10.8)
[2023-02-26 06:59] LABS: Alanine Aminotransferase 35 U/L (7-40); Albumin 4.1 g/dL (3.2-4.8); Alkaline Phosphatase 86 U/L (46-116); Anion Gap 11 (5-15); Aspartate Aminotransferase 28 U/L (13-40); BUN/Creatinine Ratio 10.1 (10.0-20.0); Blood Urea Nitrogen 10 mg/dL (9-23); Calcium 9.5 mg/dL (8.5-10.1); Carbon Dioxide 22 mmol/L (20-30); Chloride 106 mmol/L (98-107); Glucose 86 mg/dL (74-106); Potassium 3.9 mmol/L (3.5-5.1); Sodium 139 mmol/L (136-145)
[2023-02-26 07:00] LABS: Total Protein 6.5 g/dL (5.7-8.2)
[2023-02-26] MEDS ORDERED: EMPAGLIFLOZIN 10 MG TAB PO SCH (07:00)
[2023-02-26] MEDS ORDERED: LEVOTHYROXINE SODIUM 50 MCG TAB PO SCH (07:00)
[2023-02-26] MEDS: APIXABAN 2.5 MG TAB PO SCH (09:31)
[2023-02-26] MEDS: SACUBITRIL-VALSARTAN 24mg/26mg TAB PO SCH (09:31)
[2023-02-26] MEDS: LORazepam 0.5 MG TAB PO SCH (09:33)
[2023-02-26] MEDS ORDERED: SPIRONOLACTONE 25 MG TAB PO SCH (10:00)
[2023-02-26] MEDS ORDERED: PANTOPRAZOLE 40 MG TAB PO SCH (10:00)
[2023-02-26] MEDS ORDERED: amLODIPine BESYLATE 5 MG TAB PO SCH (10:00)
[2023-02-26] MEDS ORDERED: ASPirin 81 mg TAB PO SCH (10:00)
[2023-02-26] MEDS ORDERED: METOPROLOL SUCCINATE XL 50 MG TAB PO SCH ×2 (10:00)
[2023-02-26] MEDS ORDERED: CLOPIDOGREL BISULFATE 75 MG TAB PO SCH (10:00)
[2023-02-26] MEDS ORDERED: RAMIPRIL 2.5 MG CAP PO SCH (10:00)
[2023-02-26] MEDS ORDERED: APIX2.5T PO (13:21)
== END 2023-02-26 14:50 | disposition home or self-care (01) | DRG 291 ==
LOC: EDBD 10:46 → ER 10:46 → TELE 13:08 → TELE-EAST 22:29
PROVIDERS: ADMIT Nurse Practitioner Family; ATTEND Family Medicine
DX: I11.0 Hypertensive heart disease with heart failure (principal); I50.23 Acute on chronic systolic (congestive) heart failure; I24.9 Acute ischemic heart disease, unspecified; I48.91 Unspecified atrial fibrillation; I25.5 Ischemic cardiomyopathy; E03.9 Hypothyroidism, unspecified; E78.5 Hyperlipidemia, unspecified; I44.7 Left bundle-branch block, unspecified; E11.9 Type 2 diabetes mellitus without complications; I25.10 Atherosclerotic heart disease of native coronary artery without angina pectoris; J44.9 Chronic obstructive pulmonary disease, unspecified; F41.9 Anxiety disorder, unspecified; Z95.5 Presence of coronary angioplasty implant and graft; Z95.810 Presence of automatic (implantable) cardiac defibrillator
CPT/HCPCS: 36415; 71045; 80053; 81001; 83735; 83880; 84443; 84484; 85025; 85610; 85730; 93005; 93306; G0378; J2405

== ENCOUNTER 2023-04-17 18:12 | Inpatient (IN) | payer OTHER, MEDICAID ==
[~2023-04-17] VITALS: Ht 190.5 cm; Wt 87.5 kg
[~2023-04-17 18:12] MED LIST changes: +AMLO1TAB22 PO; +APIX2.5T PO; +ATOR40TA52 PO; +LEVO150T10 PO; +LORA-1123 PO; +METO200T42 PO; +PANT40T PO; +RAMI5CAP40 PO
[2023-04-17 19:22] LABS: Basophils # (auto) 0.1 10 ^3/uL (0-0.2); Eosinophils # (auto) 0.3 10 ^3/uL (0-0.8); Eosinophils % (auto) 3.2 % (0.0-7.0); Hematocrit 39.1 % (41.0-53.0); Hemoglobin 13.1 g/dL (13.5-17.5); Lymphocytes # (auto) 1.3 10 ^3/uL (0.4-5.4); Lymphocytes % (auto) 14.1 % (10.0-50.0); Mean Corpuscular Hemoglobin 30.6 pg (28.0-32.0); Mean Corpuscular Hgb Conc. 33.6 g/dL (32.0-36.0); Mean Corpuscular Volume 91.2 fL (80.0-100.0); Monocytes % (auto) 11.5 % (0.0-12.0); Neutrophils # (auto) 6.3 10 ^3/uL (1.6-8.6); Neutrophils % (auto) 70.2 % (37.0-80.0); Nucleated Red Blood Cells % 0.2 %; Red Blood Cells 4.29 10^6/uL (4.5-5.90); Red Cell Distribution Width 13.5 % (11.8-14.3); White Blood Cell 8.9 10^3/uL (4.4-10.8)
[2023-04-17 20:10] LABS: INR 1.11 (0.9-1.15); Partial Thromboplastin Time 32.8 SEC (24.5-34.5); Prothrombin Time 11.6 sec (9.3-11.8)
[2023-04-17 20:21] LABS: Alanine Aminotransferase 24 U/L (7-40); Albumin 4.1 g/dL (3.2-4.8); Alkaline Phosphatase 122 U/L (46-116); Anion Gap 8 (5-15); Aspartate Aminotransferase 24 U/L (13-40); Bilirubin, Total 0.7 mg/dL (0.2-1.0); Blood Urea Nitrogen 12 mg/dL (9-23); Calcium 9.5 mg/dL (8.7-10.4); Carbon Dioxide 23 mmol/L (20-30); Chloride 106 mmol/L (98-107); Glucose 89 mg/dL (74-106); Magnesium 2.3 mg/dL (1.6-2.6); Potassium 4.4 mmol/L (3.5-5.1); Sodium 137 mmol/L (136-145)
[2023-04-17] MEDS: PANTOPRAZOLE 40 MG/10 ML VIAL INJ IV ONE (21:35)
[2023-04-17 21:54] LABS: Urine Bacteria FEW /hpf (None Seen); Urine Blood Negative /uL (Negative); Urine Clarity Clear (Clear); Urine Color Yellow (Yellow); Urine Protein, UAD TRACE (Negative); Urine Specific Gravity 1.014 (1.001-1.035); Urine Sperm PRESENT /hpf (None Seen); Urine Urobilinogen Normal (Negative); Urine WBC <1 /hpf (0 - 3)
[2023-04-18 00:39] VITALS: PULSE 81; RESP 25; O2SAT 93
[2023-04-18] MEDS: fentaNYL CITRATE 100 MCG/2 ML VL IV ONE (02:15)
[2023-04-18] MEDS: LIDOCAINE W/ EPINEPHRINE 1% 20ML VIAL ID ONE (02:48)
[2023-04-18] MEDS ORDERED: DEXTROSE (50%) 50ML SYRG IV PRN (05:00)
[2023-04-18] MEDS ORDERED: NITROGLYCERIN 0.4 MG SL TAB SL PRN (05:00)
[2023-04-18] MEDS ORDERED: DOCUSATE SOD 100 MG CAP PO PRN (05:00)
[2023-04-18] MEDS ORDERED: MORPHINE SULFATE INJ 2 MG/ml SYRG IV PRN (05:00)
[2023-04-18] MEDS ORDERED: ONDANSETRON HCL 4 MG/2 ML VIAL IV PRN (05:00)
[2023-04-18] MEDS ORDERED: ACETAMINOPHEN 325 MG TAB PO PRN (05:00)
[2023-04-18] MEDS ORDERED: HYDROcodone-ACET 5/325MG TAB PO PRN (05:00)
[2023-04-18] MEDS: SODIUM CHLOR 0.9% PF (SALINE LOCK) 10ML VIAL/SYR IV SCH (06:28)
[2023-04-18 06:54] LABS: Basophils # (auto) 0 10 ^3/uL (0-0.2); Basophils % (auto) 0.4 % (0.0-2.0); Eosinophils # (auto) 0.1 10 ^3/uL (0-0.8); Eosinophils % (auto) 0.9 % (0.0-7.0); Hematocrit 39.9 % (41.0-53.0); Hemoglobin 12.8 g/dL (13.5-17.5); Lymphocytes % (auto) 7.4 % (10.0-50.0); Mean Corpuscular Hgb Conc. 32.2 g/dL (32.0-36.0); Mean Corpuscular Volume 93.1 fL (80.0-100.0); Monocytes # (auto) 0.8 10 ^3/uL (0-1.3); Monocytes % (auto) 5.7 % (0.0-12.0); Neutrophils # (auto) 11.3 10 ^3/uL (1.6-8.6); Neutrophils % (auto) 85.6 % (37.0-80.0); Red Blood Cells 4.28 10^6/uL (4.5-5.90); Red Cell Distribution Width 13.6 % (11.8-14.3); White Blood Cell 13.2 10^3/uL (4.4-10.8)
[2023-04-18] MEDS: LEVOTHYROXINE SODIUM 50 MCG TAB PO SCH (06:58)
[2023-04-18] MEDS: ACCU-CHEK COMFORT CURVE STRIP VI SCH (06:59)
[2023-04-18] MEDS: InsuLIN REG 1unit/0.01ml Soln (100units/ml) SC SCH (07:00)
[2023-04-18 07:15] LABS: Alanine Aminotransferase 22 U/L (7-40); Albumin 3.6 g/dL (3.2-4.8); Alkaline Phosphatase 108 U/L (46-116); Anion Gap 8 (5-15); Aspartate Aminotransferase 29 U/L (13-40); Bilirubin, Total 0.8 mg/dL (0.2-1.0); Blood Urea Nitrogen 8 mg/dL (9-23); Calcium 9.1 mg/dL (8.5-10.1); Carbon Dioxide 21 mmol/L (20-30); Chloride 105 mmol/L (98-107); Glucose 123 mg/dL (74-106); Sodium 134 mmol/L (136-145)
[2023-04-18 07:16] LABS: Total Protein 5.8 g/dL (5.7-8.2)
[2023-04-18 07:30] VITALS: PULSE 90; RESP 20; O2SAT 92
[2023-04-18] MEDS: CARVEDILOL 3.125 MG TAB PO SCH (10:00)
[2023-04-18] MEDS: FUROSEMIDE 40 MG/4 ML VIAL IV SCH (10:00)
[2023-04-18] MEDS ORDERED: ENOXAPARIN SOD 40 MG/0.4 ML SYRINGE SC SCH (10:00)
[2023-04-18] MEDS: APIXABAN 2.5 MG TAB PO SCH (10:00)
[2023-04-18] MEDS: PANTOPRAZOLE 40 MG/10 ML VIAL INJ IV SCH (10:00)
[2023-04-18 19:30] VITALS: BP 104/72; PULSE 89; PULSE 92; RESP 21; TEMP 97.9; O2SAT 97
[2023-04-18 22:00] VITALS: BP 104/72; PULSE 89; RESP 21; TEMP 97.9; O2SAT 97
[2023-04-18] MEDS: ATORVASTATIN 20 MG TAB PO SCH (22:14)
[2023-04-18] MEDS: LORazepam 0.5 MG TAB PO PRN (23:25)
[2023-04-19] VITALS (7 sets, daily range): BP systolic 97–125; BP diastolic 61–75; PULSE 73–91; RESP 17–20; TEMP 97.7–98.6; O2SAT 94–97
[2023-04-19 06:10] LABS: Basophils # (auto) 0 10 ^3/uL (0-0.2); Basophils % (auto) 0.4 % (0.0-2.0); Eosinophils # (auto) 0.3 10 ^3/uL (0-0.8); Eosinophils % (auto) 3.7 % (0.0-7.0); Hematocrit 40.1 % (41.0-53.0); Hemoglobin 13.3 g/dL (13.5-17.5); Lymphocytes # (auto) 1.2 10 ^3/uL (0.4-5.4); Lymphocytes % (auto) 14.1 % (10.0-50.0); Mean Corpuscular Hemoglobin 31.1 pg (28.0-32.0); Mean Corpuscular Hgb Conc. 33.1 g/dL (32.0-36.0); Mean Corpuscular Volume 94.2 fL (80.0-100.0); Monocytes % (auto) 11.3 % (0.0-12.0); Neutrophils % (auto) 70.5 % (37.0-80.0); Nucleated Red Blood Cells % 0.1 %; Red Blood Cells 4.26 10^6/uL (4.5-5.90); Red Cell Distribution Width 13.8 % (11.8-14.3); White Blood Cell 8.5 10^3/uL (4.4-10.8)
[2023-04-19 06:23] LABS: Alanine Aminotransferase 17 U/L (7-40); Albumin 3.6 g/dL (3.2-4.8); Alkaline Phosphatase 107 U/L (46-116); Anion Gap 6 (5-15); Aspartate Aminotransferase 23 U/L (13-40); BUN/Creatinine Ratio 10.6 (10.0-20.0); Bilirubin, Total 1.3 mg/dL (0.2-1.0); Blood Urea Nitrogen 9 mg/dL (9-23); Calcium 8.8 mg/dL (8.7-10.4); Carbon Dioxide 23 mmol/L (20-30); Chloride 105 mmol/L (98-107); Glucose 93 mg/dL (74-106); Potassium 4.3 mmol/L (3.5-5.1); Sodium 134 mmol/L (136-145); Total Protein 6.3 g/dL (5.7-8.2)
[2023-04-19] MEDS: APIXABAN 2.5 MG TAB PO SCH (21:47)
[2023-04-20] VITALS (7 sets, daily range): BP systolic 100–116; BP diastolic 64–72; PULSE 68–91; RESP 16–19; TEMP 97.8–98.4; O2SAT 94–98
[2023-04-20] MEDS: LIDOCAINE W/ EPINEPHRINE 1% 20ML VIAL ONE (17:20)
[2023-04-20] MEDS: IOHEXOL 300 MG/ML 100ML BOTTLE IJ ONE (17:20)
[2023-04-21] VITALS (7 sets, daily range): BP systolic 92–109; BP diastolic 57–66; PULSE 56–89; RESP 17–20; TEMP 97.7–98.5; O2SAT 90–98
[2023-04-21] MEDS: LIDOCAINE 2% (LOCAL ANESTH.) PF 5ml SDV ONE (12:05)
[2023-04-21] MEDS: levoFLOXacin 500MG 100 ML IV ONE (13:30)
[2023-04-21] MEDS: LIDOCAINE 2% (LOCAL ANESTH.) PF 5ml SDV IJ ONE (16:37)
[2023-04-22 05:00] VITALS: BP 100/73; PULSE 74; RESP 18; TEMP 98.3; O2SAT 94
[2023-04-22 07:30] VITALS: PULSE 71
[2023-04-22 08:00] VITALS: PULSE 80; RESP 19; O2SAT 95
[2023-04-22 09:25] VITALS: BP 98/61; PULSE 73; RESP 18; TEMP 98.2; O2SAT 97
[2023-04-22] MEDS: levoFLOXacin 500MG 100 ML IV SCH (10:24)
[2023-04-22] MEDS ORDERED: LEVO500T91 PO (11:02)
[2023-04-22 12:45] VITALS: BP 118/61; PULSE 75; RESP 18; TEMP 97.6; O2SAT 96
[2023-04-22 13:54] VITALS: BP 118/61; PULSE 75; RESP 20; TEMP 97.6; O2SAT 96
== END 2023-04-22 16:00 | disposition home or self-care (01) | DRG 377 ==
LOC: ER 18:12 → EDBD 18:12 → TELE 04-18 04:46 → TELE-WESTW 04-18 18:31
PROVIDERS: ADMIT Nurse Practitioner Family; ATTEND Family Medicine
PROC: 0W9930Z Drainage of Right Pleural Cavity with Drainage Device, Percutaneous Approach (ICD-10-PCS; principal; 2023-04-18)
DX: K92.1 Melena (principal); J15.69 Pneumonia due to other Gram-negative bacteria; J96.01 Acute respiratory failure with hypoxia; J15.9 Unspecified bacterial pneumonia; J91.8 Pleural effusion in other conditions classified elsewhere; K80.00 Calculus of gallbladder with acute cholecystitis without obstruction; J98.11 Atelectasis; F41.9 Anxiety disorder, unspecified; I25.10 Atherosclerotic heart disease of native coronary artery without angina pectoris; E78.00 Pure hypercholesterolemia, unspecified; E11.9 Type 2 diabetes mellitus without complications; I50.9 Heart failure, unspecified; I48.91 Unspecified atrial fibrillation; I11.0 Hypertensive heart disease with heart failure; E03.9 Hypothyroidism, unspecified; I25.5 Ischemic cardiomyopathy; I25.2 Old myocardial infarction; Z79.01 Long term (current) use of anticoagulants; Z95.5 Presence of coronary angioplasty implant and graft; Z95.810 Presence of automatic (implantable) cardiac defibrillator; Z88.8 Allergy status to other drugs, medicaments and biological substances
CPT/HCPCS: 36415; 71045; 74177; 76604; 80053; 81001; 82962; 83735; 83880; 84443; 84484; 85025; 85610; 85730; 86850; 86900; 86901; 93005; 96374; 96375; 99291; C9113; G0378; J1956; J2001